=== PATIENT | female | born 1980 | race Caucasian/White ===

== ENCOUNTER 2017-04-04 19:05 | Emergency (ER) | payer OTHER ==
[2017-04-04 19:18] VITALS: BP 116/64; PULSE 69; RESP 18; TEMP 97.8; O2SAT 100; BMI 29.2
[2017-04-04 19:54] LABS: PH,URINE 6.5 (4.7-8.0); URINE BILIRUBIN NEGATIVE (NEGATIVE); URINE BLOOD NEGATIVE (NEGATIVE); URINE GLUCOSE (UA) NEGATIVE (NEGATIVE); URINE KETONE NEGATIVE (NEGATIVE); URINE LEUKOCYTE ESTERASE NEGATIVE Leu/uL (NEGATIVE); URINE PROTEIN NEGATIVE mg/dL (<30 mg/dL); URINE UROBILINOGEN 0.2 E.U./dL (<1 E.U./dL)
[2017-04-04 19:56] LABS: BASO # 0.02 K/mm3 (0.0-2.0); BASO % 0.3 % (0.0-3.0); EOS # 0.1 (0.0-0.7); GRAN # 3.86 (1.4-6.5); GRAN % 55.6 % (50.0-68.0); HEMATOCRIT 35.8 % (36.0-48.0); LYMPH # 2.1 (1.2-3.4); LYMPH % 30.4 % (22.0-35.0); MEAN CELL VOLUME 87.5 fl (80.0-105.0); MEAN CORPUSCULAR HEMOGLOBIN 31.8 pg (25.0-35.0); MEAN CORPUSCULAR HGB CONC 36.3 g/dl (31.0-37.0); MEAN PLATELET VOLUME 9.3 fl (7.0-11.0); MONO # 0.9 (0.1-0.6); MONO % 12.7 % (1.0-6.0); RED CELL DISTRIBUTION WIDTH 13.1 % (11.5-14.5); WHITE BLOOD COUNT 6.9 10^3/ul (4.5-11.0)
[2017-04-04 20:00] LABS: URINE APPEARANCE CLEAR (CLEAR); URINE COLOR YELLOW (YELLOW)
[2017-04-04] MEDS ORDERED: Sodium Chloride 0.9% 1,000 ML IV SCH (20:00)
[2017-04-04 20:06] LABS: ALB/GLOB RATIO 1.2 (1.1-1.8); ALKALINE PHOSPHATASE 102 U/L (38-126); ALT/SGPT 32 U/L (7-56); AMYLASE 62 U/L (35-125); AST/SGOT 26 U/L (14-36); BILIRUBIN,TOTAL 0.5 mg/dL (0.2-1.3); BLOOD UREA NITROGEN 8 mg/dL (7-21); CALCIUM 9.2 mg/dL (8.4-10.5); CARBON DIOXIDE 26 mmol/L (21-33); CHLORIDE 101 mmol/L (98-107); GFR AFRICAN-AMERICAN > 60; GLUCOSE,RANDOM 95 mg/dL (70-110); INR 0.99 (0.93-1.08); LIPASE 49 U/L (23-300); PARTIAL THROMBOPLASTIN TIME 26.5 Seconds (23.7-30.8); POTASSIUM 3.8 mmol/L (3.6-5.0); SODIUM 137 mmol/L (132-148); TOTAL PROTEIN 7.8 g/dL (5.8-8.3)
[2017-04-04 20:22] LABS: T4 15.6 ug/dL (5.5-11.0); TROPONIN I < 0.01 ng/mL
[2017-04-04 20:36] LABS: THYROID STIMULATING HORMONE 3.61 mIU/mL (0.46-4.68)
--- NOTE | 2017-04-04 20:54 | US ---
EXAM: US Abdomen Complete CLINICAL HISTORY: 36 years old, female; Pain; Abdominal pain; Epigastric; Additional info: Upper abd pain TECHNIQUE: Real-time ultrasound of the abdomen (complete) with image documentation. COMPARISON: US - ABDOMEN COMPLETE 07/06/2015 7:32:05 AM FINDINGS: Liver: Fatty infiltration. No mass. No intrahepatic ductal dilatation. Gallbladder: No gallstones. No wall thickening. No pericholecystic fluid. No sonographic Fragoso's sign. Common bile duct: No dilatation. No stones. Pancreas: Unremarkable as visualized. Kidneys: Normal echogenicity. No hydronephrosis. Spleen: No splenomegaly. Aorta: Unremarkable. No aneurysm. Inferior vena cava: Unremarkable. Free fluid: No significant free fluid. IMPRESSION: 1.No acute findings. 2.Non-acute findings are described above.
--- NOTE | 2017-04-04 21:35 | ED PDOC ---
Arrival/HPI - General Chief Complaint: Abdominal Pain Time Seen by Provider: 04/04/17 19:27 Historian: Patient - History of Present Illness Narrative History of Present Illness (Text): 04/04/17 19:30 A 36 year old female, whose past medical history includes asthma and chronic lower back pain, presents to the emergency department complaining of intermittent abdominal pain for 3 weeks. Patient reports symptoms occurred after ingesting food. She mentions pins and needles in hands and arms. Patient notes also experiencing nausea and vomiting today, but denies of any shortness of breath, chest pain, or any other complaints. No PMD Time/Duration: > week (3 weeks ) Symptom Onset: Gradual Symptom Course: Unchanged Past Medical History - Provider Review Nursing Documentation Reviewed: Yes - Infectious Disease Hx of Infectious Diseases: None - Tetanus Immunization Tetanus Immunization: Unknown - Past Medical History Past Medical History: No Previous - Cardiac Hx Cardiac Disorders: No - Pulmonary Hx Respiratory Disorders: No - Neurological Hx Neurological Disorder: No - HEENT Hx HEENT Disorder: No - Renal Hx Renal Disorder: No - Endocrine/Metabolic Hx Endocrine Disorders: No - Hematological/Oncological Hx Blood Disorders: No - Integumentary Hx Dermatological Disorder: No - Musculoskeletal/Rheumatological Hx Falls: No Hx Fractures: Yes (right wrist) - Gastrointestinal Hx Gastrointestinal Disorders: No - Genitourinary/Gynecological Hx Genitourinary Disorders: (essure implant for control) Hx Urinary Tract Infection: Yes - Psychiatric Hx Psychophysiologic Disorder: No Hx Substance Use: No - Surgical History Hx Orthopedic Surgery: Yes (right wrist with plate) - Anesthesia Hx Anesthesia: Yes Hx Anesthesia Reactions: No Hx Malignant Hyperthermia: No - Suicidal Assessment Feels Threatened In Home Enviroment: No Family/Social History - Physician Review Nursing Documentation Reviewed: Yes Family/Social History: No Known Family HX Smoking Status: Current Some Days Smoker Hx Alcohol Use: Yes Hx Substance Use: No Hx Substance Use Treatment: No Allergies/Home Meds Allergies/Adverse Reactions: Allergies oak tree Allergy (Uncoded 04/04/17 19:18) SHORTNESS OF BREATH red apples Allergy (Uncoded 04/04/17 19:18) SWELLING throat closes Home Medications: Home Meds Medication Instructions Recorded Confirmed Albuterol HFA [Ventolin HFA 90 2 puff IH PRN PRN 04/04/17 04/04/17 mcg/actuation (8 g)] Review of Systems - Physician Review All systems were reviewed & negative as marked: Yes - Review of Systems Respiratory: absent: SOB Cardiovascular: absent: Chest Pain Gastrointestinal: Abdominal Pain (intermittent abdominal pain), Nausea, Vomiting Neurological: Other ("pins and needles" sensation in the arms and hands.) Physical Exam Vital Signs Reviewed: Yes Vital Signs Temp Pulse Resp BP Pulse Ox 04/04/17 19:17 97.8 F 69 18 116/64 100 Temperature: Afebrile Blood Pressure: Normal Pulse: Regular Respiratory Rate: Normal Appearance: Positive for: Well-Appearing Pain Distress: None Mental Status: Positive for: Alert and Oriented X 3 - Systems Exam Head: Present: Atraumatic, Normocephalic Pupils: Present: PERRL Extroacular Muscles: Present: EOMI Conjunctiva: Present: Normal Mouth: Present: Moist Mucous Membranes Neck: Present: Normal Range of Motion Respiratory/Chest: Present: Clear to Auscultation, Good Air Exchange. No: Respiratory Distress, Accessory Muscle Use Cardiovascular: Present: Regular Rate and Rhythm, Normal S1, S2. No: Murmurs Abdomen: Present: Normal Bowel Sounds. No: Tenderness, Distention, Peritoneal Signs Back: Present: Normal Inspection Upper Extremity: Present: Normal Inspection. No: Cyanosis, Edema Lower Extremity: Present: Normal Inspection. No: Edema Neurological: Present: GCS=15, CN II-XII Intact, Speech Normal Skin: Present: Warm, Dry, Normal Color. No: Rashes Psychiatric: Present: Alert, Oriented x 3, Normal Insight, Normal Concentration Medical Decision Making ED Course and Treatment: 04/04/17 19:35 Impression: 36 year old female with abdominal pain, nausea, vomiting, and "pins and needles" sensation of the arms and hands. No acute findings on physical exam. Plan: -- EKG -- Abd/Pelvis CT -- Abdominal Ultrasound -- Labs -- Urinalysis -- Protonix -- Zofran -- IV Fluids -- Reassess and disposition Prior Visits: Notes and results from previous visits were reviewed. Patient was last seen in the emergency department on 04/15/2016 for right lower back pain radiating to the right lower extremity. Patient was discharged home. Progress Notes: EKG: Ordered, reviewed, and independently interpreted the EKG. Rate : 60 BPM Rhythm : NSR Interpretation : No ST-segment elevations or depressions, no T-wave inversions, normal intervals. Comparison : No previous EKG for comparison. 04/04/2017 20:54 Abdominal Ultrasound FINDINGS: Liver: Fatty infiltration. No mass. No intraheptic ductal dilatation. Gallbladder: No gallstones. No wall thickening. No pericholecystic fluid. No sonographic Fragoso's sign. Common bile duct: No dilatation. No stones. Pancreas: Unremarkable as visualized. Kidneys: Normal echogenicity. No hydronephrosis. Spleen: No splenomegaly. Aorta: Unremarkable. No aneurysm. Inferior vena cava: Unremarkable. Free fluid: No significantfree fluid. IMPRESSION: 1. No acute findings. 2. Non-acute findings are described above. Dictator: Won Nicole MD 04/04/2017 23:52 Abd/Pelvis CT FINDINGS: Lower thorax: Minimal atelectasis. ABDOMEN: Liver: Probable mild fatty infiltration. Gallbladder and bile ducts: No calcified stones. No ductal dilation. Pancreas: No ductal dilation. No mass. Spleen: No splenomegaly. Adrenals: No mass. Kidneys and ureters: No mass. No hydronephrosis. Stomach and bowel: Segmental areas of mild mural thickening vs underdistention of LEFT colon. No associated inflammatory stranding. No obstruction. Appendix: Normal caliber. No definite inflammation. PELVIS: Bladder: Borderline bladder wall thickening, up to 5 mm. Incomplete distention, limiting evaluation. Reproductive: Tubal implants. 1.0 x 0.9 x 1.4 cm peripherally enhancing hypodensity with crenulated margins within RIGHT ovary. ABDOMEN and PELVIS: Intraperitoneal space: No significant fluid collection. No free air. Bones/joints: No acute fracture. Soft tissues: Unremarkable. Vasculature: Unremarkable. No aneurysm. Lymph nodes: No pathologically enlarged lymph nodes. IMPRESSION: 1. Involuting or ruptured RIGHT ovarian follicle/cyst. 2. Mild cystitis vs underdistention. Correlate with urinalysis. 3. Mild colitis versus underdistention. Clinical correlation is needed. 4. Incidental/non-acute findings are described above. Dictator: Won Nicole MD Re-evaluation Time: 01:07 Reassessment Condition: Re-examined, Improved - Lab Interpretations Lab Results: 04/04/17 19:43 04/04/17 19:43 Lab Results 04/04/17 19:43: Thyroxine (T4) 15.6 H, TSH 3rd Generation 3.61 10/10/17 19:43: Sodium 137, Potassium 3.8, Chloride 101, Carbon Dioxide 26, Anion Gap 14, BUN 8, Creatinine 0.5 L, Est GFR ( Amer) > 60, Est GFR (Non -Af Amer) > 60, Random Glucose 95, Calcium 9.2, Total Bilirubin 0.5, AST 26, ALT 32, Alkaline Phosphatase 102, Lactate Dehydrogenase 454, Total Creatine Kinase 70, Troponin I < 0.01, Total Protein 7.8, Albumin 4.3, Globulin 3.6, Albumin/Globulin Ratio 1.2, Amylase 62, Lipase 49 04/04/17 19:43: Urine Color Yellow, Urine Appearance Clear, Urine pH 6.5, Ur Specific [place] 1.010, Urine Protein Negative, Urine Glucose (UA) Negative, Urine Ketones Negative, Urine Blood Negative, Urine Nitrate Negative, Urine Bilirubin Negative, Urine Urobilinogen 0.2, Ur Leukocyte Esterase Negative 04/04/17 19:43: PT 10.7, INR 0.99, APTT 26.5 04/04/17 19:43: WBC 6.9, RBC 4.09, Hgb 13.0, Hct 35.8 L, MCV 87.5, MCH 31.8, MCHC 36.3, RDW 13.1, Plt Count 192, MPV 9.3, Gran % 55.6, Lymph % (Auto) 30.4, Wolfe % (Auto) 12.7 H, Eos % (Auto) 1.0 L, Baso % (Auto) 0.3, Gran # 3.86, Lymph # 2.1, Wolfe # 0.9 H, Eos # 0.1, Baso # 0.02 I have reviewed the lab results: Yes - RAD Interpretation Radiology Orders: 04/04/17 19:38 ABDOMEN COMPLETE [US] Stat 04/04/17 20:56 ABD & PELVIS IV CONTRAST ONLY [CT] Stat - Medication Orders Current Medication Orders: Sodium Chloride (Sodium Chloride 0.9%) 1,000 mls @ 80 mls/hr IV .[id number] Last Admin: 04/04/17 21:01 Dose: 80 mls/hr eMAR Start Stop Document 04/04/17 21:01 SS (Rec: 04/04/17 21:01 SS [id number]) Intravenous Solution Start Date 04/04/17 Start Time 21:01 Discontinued Medications Ketorolac Tromethamine (Toradol) 30 mg IVP ONCE ONE Stop: 04/04/17 21:23 Last Admin: 04/04/17 21:46 Dose: 30 mg MAR Pain Assessment Document 04/04/17 21:46 SS (Rec: 04/04/17 21:46 SS [id number]) Pain Reassessment Is this a pain reassessment? No Sleep Is patient sleeping during reassessment? No Presence of Pain Presence of Pain Yes IVP Administration Document 04/04/17 21:46 SS (Rec: 04/04/17 21:46 SS [id number]) Charges for Administration # of IVP Administrations 1 Ondansetron HCl (Zofran Inj) 4 mg IVP STAT STA Stop: 04/04/17 19:53 Last Admin: 04/04/17 21:09 Dose: 4 mg IVP Administration Document 04/04/17 21:09 SS (Rec: 04/04/17 21:09 SS [id number]) Charges for Administration # of IVP Administrations 1 Pantoprazole Sodium (Protonix Inj) 40 mg IVP ONCE STA Stop: 04/04/17 19:53 Last Admin: 04/04/17 21:01 Dose: 40 mg IVP Administration Document 04/04/17 21:01 SS (Rec: 04/04/17 21:01 SS [id number]) Charges for Administration # of IVP Administrations 1 - Scribe Statement The provider has reviewed the documentation as recorded by the Kt Hollis Provider Scribe Attestation: All medical record entries made by the Kt were at my direction and personally dictated by me. I have reviewed the chart and agree that the record accurately reflects my personal performance of the history, physical exam, medical decision making, and the department course for this patient. I have also personally directed, reviewed, and agree with the discharge instructions and disposition. Disposition/Present on Arrival - Present on Arrival Any Indicators Present on Arrival: No History of DVT/PE: No History of Uncontrolled Diabetes: No Urinary Catheter: No History of Decub. Ulcer: No History Surgical Site Infection Following: None - Disposition Have Diagnosis and Disposition been Completed?: Yes Diagnosis: Abdominal pain, Gastroenteritis, Hyperthyroidism Disposition: HOME/ ROUTINE Disposition Time: 01:07 Condition: GOOD Discharge Instructions (ExitCare): Colitis (ED), Hyperthyroidism (ED) Additional Instructions: follow up with [facility] Prescriptions: Metronidazole [Flagyl] 500 mg PO TID #15 tab Pantoprazole Sodium [Protonix] 40 mg PO DAILY #14 ect Ondansetron [Zofran Odt] 8 mg PO TID PRN #10 odt PRN Reason: Nausea/Vomiting Referrals: [facility] Bhaskar Req, [Primary Care Provider] - Follow up with primary Forms: [employer] (Tajik)
[2017-04-04] MEDS ORDERED: Iohexol 350 MG/100 ML VIAL ONE (22:49)
--- NOTE | 2017-04-04 23:53 | CT ---
EXAM: CT Abdomen and Pelvis With Intravenous Contrast CLINICAL HISTORY: 36 years old, female; Pain; Abdominal pain; Acute; Additional info: Abd pain TECHNIQUE: Axial computed tomography images of the abdomen and pelvis with intravenous contrast. All CT scans at this facility use one or more dose reduction techniques, viz.: automated exposure control; ma/kV adjustment per patient size (including targeted exams where dose is matched to indication; i.e. head); or iterative reconstruction technique. Coronal and sagittal reformatted images were created and reviewed. CONTRAST: 100 mL of omni 350 administered intravenously. COMPARISON: US - PELVIS ULTRASOUND 07/06/2015 3:10:06 PM FINDINGS: Lower thorax: Minimal atelectasis. ABDOMEN: Liver: Probable mild fatty infiltration. Gallbladder and bile ducts: No calcified stones. No ductal dilation. Pancreas: No ductal dilation. No mass. Spleen: No splenomegaly. Adrenals: No mass. Kidneys and ureters: No mass. No hydronephrosis. Stomach and bowel: Segmental areas of mild mural thickening vs underdistention of LEFT colon. No associated inflammatory stranding. No obstruction. Appendix: Normal caliber. No definite inflammation. PELVIS: Bladder: Borderline bladder wall thickening, up to 5 mm. Incomplete distention, limiting evaluation. Reproductive: Tubal implants. 1.0 x 0.9 x 1.4 cm peripherally enhancing hypodensity with crenulated margins within RIGHT ovary. ABDOMEN and PELVIS: Intraperitoneal space: No significant fluid collection. No free air. Bones/joints: No acute fracture. Soft tissues: Unremarkable. Vasculature: Unremarkable. No aneurysm. Lymph nodes: No pathologically enlarged lymph nodes. IMPRESSION: 1. Involuting or ruptured RIGHT ovarian follicle/cyst. 2. Mild cystitis vs underdistention. Correlate with urinalysis. 3. Mild colitis versus underdistention. Clinical correlation is needed. 4. Incidental/non-acute findings are described above.
--- NOTE | 2017-04-05 10:22 | CARD ---
APPROVED REPORT EKG Measurement Heart [id number] <Conclusion> Normal sinus rhythm Early Repolarization.
== END 2017-04-05 01:40 | disposition home or self-care (01) ==
LOC: ED 19:05
DX: K52.9 Noninfective gastroenteritis and colitis, unspecified (principal); E05.90 Thyrotoxicosis, unspecified without thyrotoxic crisis or storm
CPT/HCPCS: 74177; 76700; 80053; 81003; 82150; 82550; 83615; 83690; 84436; 84443; 84484; 85025; 85610; 85730; 93005; 96374; 96375; 96376; 99283; C9113; J1885; J2405; J7040; Q9967

== ENCOUNTER 2017-07-26 15:35 | Emergency (ER) | payer OTHER ==
[2017-07-26 15:35] VITALS: BMI 29.2
[2017-07-26 16:25] VITALS: TEMP 97.9
[2017-07-26 18:55] VITALS: BP 131/72; PULSE 77; RESP 16; O2SAT 98
--- NOTE | 2017-07-26 20:19 | ED PDOC ---
Arrival/HPI - General Chief Complaint: Lower Extremity Problem/Injury Time Seen by Provider: 07/26/17 16:14 Historian: Patient - History of Present Illness Narrative History of Present Illness (Text): 07/26/17 16:35 37 year old female who presents to the emergency department complaining of right knee pain. Patient states she has been experiencing right knee pain for many years, which has worsened over the past week. Patient states pain is located at the anterior aspect of the right knee and is worsened with walking, going up stairs, and bending/extending the knee for long periods of time. Patient states she has a history of sciatica which she believes may be related to the knee pain. Patient denies any back pain at this time. Patient notes some numbness to her toes bilaterally and some tingling in her hands bilaterally for which she is supposed to follow-up. Patient states she had an MRI of the back, which was normal, and doesn't know why she is experiencing pain in her knee. Patient able to ambulate without difficulty. Patient denies any recent trauma/ injury, or any other complaints. Symptom Onset: Gradual Symptom Course: Worsening Activities at Onset: Light Context: Home Past Medical History - Provider Review Nursing Documentation Reviewed: Yes - Infectious Disease Hx of Infectious Diseases: None - Tetanus Immunization Tetanus Immunization: Unknown - Past Medical History Past Medical History: No Previous - Psychiatric Hx Substance Use: No - Surgical History Other/Comment: R hand sx - Anesthesia Hx Anesthesia: Yes Hx Anesthesia Reactions: No - Suicidal Assessment Feels Threatened In Home Enviroment: No Family/Social History - Physician Review Nursing Documentation Reviewed: Yes Family/Social History: Unknown Family HX Smoking Status: Current Some Days Smoker Hx Alcohol Use: No Hx Substance Use: No Allergies/Home Meds Allergies/Adverse Reactions: Allergies oak tree Allergy (Uncoded 07/26/17 16:28) SHORTNESS OF BREATH red apples Allergy (Uncoded 07/26/17 16:28) SWELLING throat closes Review of Systems - Physician Review All systems were reviewed & negative as marked: Yes - Review of Systems Constitutional: Normal. absent: Fevers Eyes: Normal ENT: Normal Respiratory: Normal. absent: SOB, Cough Cardiovascular: Normal. absent: Chest Pain Gastrointestinal: Normal. absent: Abdominal Pain, Diarrhea, Nausea, Vomiting Genitourinary Female: Normal. absent: Dysuria, Frequency, Hematuria, Urine Output Changes Musculoskeletal: Arthralgias (+right knee pain). absent: Back Pain, Neck Pain Skin: Normal. absent: Rash Neurological: Normal. absent: Headache, Dizziness Endocrine: Normal Hemo/Lymphatic: Normal Psychiatric: Normal Physical Exam Vital Signs Reviewed: Yes Vital Signs Temp Pulse Resp BP Pulse Ox 07/26/17 18:10 77 16 131/72 98 07/26/17 16:22 97.9 F 67 18 104/73 100 Temperature: Afebrile Blood Pressure: Normal Pulse: Regular Respiratory Rate: Normal Appearance: Positive for: Well-Appearing, Non-Toxic, Comfortable Pain Distress: None Mental Status: Positive for: Alert and Oriented X 3 - Systems Exam Head: Present: Atraumatic, Normocephalic Pupils: Present: PERRL Extroacular Muscles: Present: EOMI Conjunctiva: Present: Normal Mouth: Present: Moist Mucous Membranes Neck: Present: Normal Range of Motion Respiratory/Chest: Present: Clear to Auscultation, Good Air Exchange. No: Respiratory Distress, Accessory Muscle Use Cardiovascular: Present: Regular Rate and Rhythm, Normal S1, S2. No: Murmurs Abdomen: Present: Normal Bowel Sounds. No: Tenderness, Distention, Peritoneal Signs Back: Present: Normal Inspection. No: CVA Tenderness, Midline Tenderness, Paraspinal Tenderness, Pain with Leg Raise Upper Extremity: Present: Normal Inspection. No: Cyanosis, Edema Lower Extremity: Present: NORMAL PULSES (Distal pulses intact), Normal ROM ( Ambulating with steady gait), Tenderness (Tenderness to anterior aspect of right knee), Neurovascularly Intact (Senstation intact), Capillary Refill < 2 s. No: Edema, CALF TENDERNESS, Cyanosis, Swelling, Erythema, Deformity, Temperature Abnormalties, Other (No ecchymosis) Neurological: Present: GCS=15, CN II-XII Intact, Speech Normal Skin: Present: Warm, Dry, Normal Color. No: Rashes Psychiatric: Present: Alert, Oriented x 3, Normal Insight, Normal Concentration Medical Decision Making ED Course and Treatment: 07/26/17 16:35 37 year old female with chronic right knee pain. Plan: -- XR Right Knee -- Toradol -- Reassess and disposition Progress Notes: XR Right Knee reviewed, negative for any acute processes. Pt placed in knee immobilizer and given crutches. Patient reassessment: Patient feeling slightly better after medications. advised f/u with orthopedist within the next 2 days. advised RICE; motrin and return if symptoms worsen,persist or if new symptoms develop. Patient verbalizes understanding of discharge instructions and need for immediate followup. all aspects of this case were discussed the attending of record. impression; knee pain Motrin every 6 hours as needed for pain Rest, ice, compression, elevation Use crutches for ambulation Followup with the orthopedist within the next 2 days Followup with primary care physician within the next 2 days Return if symptoms worsen persist or if new symptoms develop - RAD Interpretation Radiology Orders: 07/26/17 18:38 KNEE W PATELLA RIGHT 3 VIEW [RAD] Stat Synthetic Cloth Binding Cutter: ED Physician - Medication Orders Current Medication Orders: Discontinued Medications Ketorolac Tromethamine (Toradol) 60 mg IM STAT STA Stop: 07/26/17 18:39 Last Admin: 07/26/17 18:44 Dose: 60 mg MAR Pain Assessment Document 07/26/17 18:44 SZA (Rec: 07/26/17 18:44 SZA [id number]) Pain Reassessment Is this a pain reassessment? No Sleep Is patient sleeping during reassessment? No Presence of Pain Presence of Pain Yes IM Administration Charges Document 07/26/17 18:44 SZA (Rec: 07/26/17 18:44 SZA [id number]) Charges for Administration # of IM Administrations 1 - Scribe Statement The provider has reviewed the documentation as recorded by the Scribe Lynette aHy Provider Scribe Attestation: All medical record entries made by the Scribe were at my direction and personally dictated by me. I have reviewed the chart and agree that the record accurately reflects my personal performance of the history, physical exam, medical decision making, and the department course for this patient. I have also personally directed, reviewed, and agree with the discharge instructions and disposition. Disposition/Present on Arrival - Present on Arrival Any Indicators Present on Arrival: No History of DVT/PE: No History of Uncontrolled Diabetes: No Urinary Catheter: No History of Decub. Ulcer: No History Surgical Site Infection Following: None - Disposition Have Diagnosis and Disposition been Completed?: Yes Diagnosis: Knee pain Disposition: HOME/ ROUTINE Disposition Time: 20:17 Patient Plan: Discharge Condition: GOOD Discharge Instructions (ExitCare): Knee Pain (ED) Additional Instructions: Motrin every 6 hours as needed for pain Rest, ice, compression, elevation Use crutches for ambulation Followup with the orthopedist within the next 2 days Followup with primary care physician within the next 2 days Return if symptoms worsen persist or if new symptoms develop Referrals: [facility] [place] - Follow up with primary [facility] [Outside] - Follow up with primary Ismael Quintana DO [Staff Provider] - Follow up with primary Kevin Thompson MD [Staff Provider] - Follow up with primary Forms: [employer] (Korean), WORK NOTE
--- NOTE | 2017-07-27 08:35 | RAD ---
PROCEDURE: Right Knee Radiographs. HISTORY: knee pain COMPARISON: None. FINDINGS: BONES: Normal. No fracture. JOINTS: Normal. No osteoarthritis. JOINT EFFUSION: None. OTHER FINDINGS: None. IMPRESSION: Normal radiographs of the right knee.
== END 2017-07-26 20:31 | disposition home or self-care (01) ==
LOC: ED 15:35
DX: M25.561 Pain in right knee (principal)
CPT/HCPCS: 73562; 96372; 99283; J1885

== ENCOUNTER 2017-10-29 02:45 | Emergency (ER) | payer OTHER ==
[2017-10-29 02:51] VITALS: BMI 65.8
[2017-10-29 03:00] VITALS: TEMP 98.2
[2017-10-29] MEDS ORDERED: Albuterol-Ipratrop 3 mg / 0.5 (3 ml) UD IH STA ×2 (03:05→03:09)
--- NOTE | 2017-10-29 03:12 | ED PDOC ---
Arrival/HPI - General Chief Complaint: Shortness Of Breath Time Seen by Provider: 10/29/17 02:48 Historian: Patient - History of Present Illness Narrative History of Present Illness (Text): 10/29/17 03:09 37 year old female, with past medical history of allergies, presents to the Emergency department complaining shortness of breath associated with wheezing since today. Additionally, patient complaints of lower legs and ankle discomfort. Patient informs recently getting over low grade fever and non- productive cough. Patient currently denies any fever, chills, nausea, vomiting, diarrhea, abdominal pain, chest pain or any other complaints. Time/Duration: 4-6 hours Symptom Onset: Gradual Symptom Course: Unchanged Activities at Onset: Light Context: Home Past Medical History - Provider Review Nursing Documentation Reviewed: Yes - Infectious Disease Hx of Infectious Diseases: None - Tetanus Immunization Tetanus Immunization: Unknown - Past Medical History Past Medical History: No Previous - Pulmonary Hx Respiratory Disorders: Yes Hx Asthma: Yes - Psychiatric Hx Substance Use: No - Surgical History Other/Comment: R hand sx - Anesthesia Hx Anesthesia: Yes Hx Anesthesia Reactions: No - Suicidal Assessment Feels Threatened In Home Enviroment: No Family/Social History - Physician Review Nursing Documentation Reviewed: Yes Family/Social History: No Known Family HX Smoking Status: Current Some Days Smoker Hx Alcohol Use: No Hx Substance Use: No Allergies/Home Meds Allergies/Adverse Reactions: Allergies oak tree Allergy (Uncoded 07/26/17 16:28) SHORTNESS OF BREATH red apples Allergy (Uncoded 07/26/17 16:28) SWELLING throat closes Review of Systems - Physician Review All systems were reviewed & negative as marked: Yes - Review of Systems Constitutional: Normal. absent: Fevers Respiratory: SOB, Wheezing Cardiovascular: absent: Chest Pain Gastrointestinal: absent: Abdominal Pain, Diarrhea, Nausea, Vomiting Physical Exam Vital Signs Reviewed: Yes Vital Signs Temp Pulse Resp BP Pulse Ox 10/29/17 04:20 107 H 16 111/51 L 95 10/29/17 02:58 98.2 F 73 19 139/79 100 Temperature: Afebrile Blood Pressure: Normal Pulse: Regular Respiratory Rate: Normal Appearance: Positive for: Well-Appearing, Non-Toxic, Comfortable Pain Distress: None Mental Status: Positive for: Alert and Oriented X 3 - Systems Exam Head: Present: Atraumatic, Normocephalic Pupils: Present: PERRL Extroacular Muscles: Present: EOMI Conjunctiva: Present: Normal Neck: Present: Normal Range of Motion Respiratory/Chest: Present: Good Air Exchange, Wheezes (right lung paint expiratory wheeze). No: Respiratory Distress, Accessory Muscle Use Cardiovascular: Present: Regular Rate and Rhythm, Normal S1, S2. No: Murmurs Abdomen: No: Tenderness, Distention, Peritoneal Signs Back: Present: Normal Inspection Upper Extremity: Present: Normal Inspection. No: Cyanosis, Edema Lower Extremity: Present: Normal Inspection, Neurovascularly Intact. No: Edema , CALF TENDERNESS, Verito's Sign, Tenderness, Swelling Neurological: Present: GCS=15, CN II-XII Intact, Speech Normal Skin: Present: Warm, Dry, Normal Color. No: Rashes Psychiatric: Present: Alert, Oriented x 3, Normal Insight, Normal Concentration Medical Decision Making ED Course and Treatment: 10/29/17 03:17 Impression: 37 year old female presents to the Emergency department for shortness of breath, wheezing and bilateral leg discomfort. Plan: -- Chest X-ray -- Albuterol -- US lower extremity -- Reassess and disposition Progress Notes: 10/29/17 04:22 US of Lower Extremities- No DVT 10/29/17 04:41 Chest X-ray reviewed, shows no acute processes. - RAD Interpretation Radiology Orders: 10/29/17 03:05 DUPLEX LOWER EXTRM VEIN BILAT [US] Stat 10/29/17 03:06 CHEST PORTABLE [RAD] Stat Grassroots Organizer: Radiologist - Medication Orders Current Medication Orders: Discontinued Medications Albuterol/Ipratropium (Duoneb 3 Mg/0.5 Mg (3 Ml) Ud) 3 ml IH ONCE STA Stop: 10/29/17 03:06 Last Admin: 10/29/17 03:06 Dose: 3 ml Albuterol/Ipratropium (Duoneb 3 Mg/0.5 Mg (3 Ml) Ud) 3 ml IH ONCE STA Stop: 10/29/17 03:10 Last Admin: 10/29/17 03:18 Dose: 3 ml Azithromycin (Zithromax) 500 mg PO ONCE STA PRN Reason: Protocol Stop: 10/29/17 04:44 Last Admin: 10/29/17 04:58 Dose: 500 mg Ibuprofen (Motrin Tab) 800 mg PO STAT STA Stop: 10/29/17 04:43 Last Admin: 10/29/17 04:58 Dose: 800 mg - Herlindae Statement The provider has reviewed the documentation as recorded by the Kt Hoskins. All medical record entries made by the Kt were at my direction and personally dictated by me. I have reviewed the chart and agree that the record accurately reflects my personal performance of the history, physical exam, medical decision making, and the department course for this patient. I have also personally directed, reviewed, and agree with the discharge instructions and disposition. Disposition/Present on Arrival - Present on Arrival Any Indicators Present on Arrival: No History of DVT/PE: No History of Uncontrolled Diabetes: No Urinary Catheter: No History of Decub. Ulcer: No History Surgical Site Infection Following: None - Disposition Have Diagnosis and Disposition been Completed?: Yes Diagnosis: Bronchospasm, Bronchitis, Myalgia Disposition: HOME/ ROUTINE Disposition Time: 04:45 Patient Plan: Discharge Condition: GOOD Discharge Instructions (ExitCare): Acute Bronchitis, Adult (DC), Muscle and Bone Pain (DC) Additional Instructions: Take medication as prescribed/rest next few days/follow up with your doctor this week Prescriptions: Naproxen [Naprosyn Tab] 375 mg PO BID PRN #14 tab PRN Reason: Pain, Moderate (4-7) Albuterol Sulfate [Proventil Hfa] 2 puff IH Q4 PRN #1 unit PRN Reason: Wheezing Azithromycin [Zithromax] 250 mg PO DAILY #4 tab Referrals: PCP,NO [Primary Care Provider] - Follow up with primary Forms: [employer] ([place]i)
[2017-10-29 04:23] VITALS: BP 111/51; PULSE 107; RESP 16; O2SAT 95
--- NOTE | 2017-10-29 08:36 | RAD ---
HISTORY: cough COMPARISON: 07/04/2015 FINDINGS: LUNGS: No active pulmonary disease. PLEURA: No significant pleural effusion identified, no pneumothorax apparent. CARDIOVASCULAR: Normal. OSSEOUS STRUCTURES: No significant abnormalities. VISUALIZED UPPER ABDOMEN: Normal. OTHER FINDINGS: None. IMPRESSION: No active disease.
--- NOTE | 2017-10-29 19:40 | US ---
HISTORY: Leg pain and swelling. Evaluate for DVT PHYSICIAN(S): Gigi Rey MD. TECHNIQUE: Duplex sonography and color-flow Doppler with graded compression were used to evaluate the deep venous systems of both lower extremities. FINDINGS: The visualized deep venous systems of both lower extremities are sonographically normal and compressible. Normal wave forms and augmentation are seen. There is no sonographic evidence for deep venous thrombosis in the visualized segments of both lower extremities. IMPRESSION: No sonographic evidence for deep venous thrombosis in the visualized segments of both lower extremities.
== END 2017-10-29 04:59 | disposition home or self-care (01) ==
LOC: ED 02:45
DX: J20.9 Acute bronchitis, unspecified (principal); M79.1 Myalgia; F17.210 Nicotine dependence, cigarettes, uncomplicated